=== PATIENT | male | born 1980 ===

== ENCOUNTER 2023-12-27 06:42 | Day surgery (SDC) | payer OTHER ==
[2023-12-27] MEDS ORDERED: FLUMAZENIL 0.5 MG/5ML ML IV STA (10:17)
[2023-12-27] MEDS ORDERED: MIDAZOLAM HCL 2 MG/2 ML VIAL IV ONE (10:30)
[2023-12-27] MEDS ORDERED: DIPHENHYDRAMINE HCL 50 MG/ML VIAL 1ML IV ONE (10:30)
[2023-12-27] MEDS ORDERED: fentaNYL CITRATE 50 MCG/ML AMPUL IV PUSH ONE (10:30)
== END 2023-12-27 11:40 | disposition home or self-care (01) ==
LOC: AMB-ENDOS 06:42
PROVIDERS: ATTEND Colon & Rectal Surgery
DX: K63.5 Polyp of colon (principal)